=== PATIENT | female | born 1970 | race Two or more races ===

== ENCOUNTER → 2023-09-02 | Day surgery (SDC) | payer OTHER ==
[~2023-09-02] VITALS: Ht 157.5 cm; Wt 56.7 kg
[~2023-09-02] MED LIST: CHILDREN'S ASPI81 MG PO; MULTIPLE VITAM1 EAC2 PO
== END | disposition home or self-care (01) ==
LOC: ADM 08-31 15:00 → CIR.AMB 07:00
PROVIDERS: ATTEND Specialist
DX: N64.81 Ptosis of breast (principal); N64.89 Other specified disorders of breast; N65.0 Deformity of reconstructed breast